=== PATIENT | female | born 1985 | race Caucasian/White ===

== ENCOUNTER 2018-11-16 08:00 | Inpatient (IN) ==
[2018-11-16] MEDS ORDERED: *HR* Nalbuphine 10 MG/ML AMPUL IVP PRN (08:11)
[2018-11-16] MEDS ORDERED: Penicillin G Potassium 5,000,000 UNIT in 0.9 % Sodium Chloride Mini Bag 100 ML IVPB ONE (08:11)
[2018-11-16] MEDS ORDERED: Metoclopramide 10 MG/2 ML VIAL IVP PRN (08:11)
[2018-11-16] MEDS ORDERED: Ondansetron 4 MG/2 ML VIAL IVP PRN (08:11)
[2018-11-16] MEDS ORDERED: Famotidine 20 MG/2 ML VIAL IVP PRN (08:11)
[2018-11-16] MEDS ORDERED: Oxytocin 20 units/ LR 1000 mL 20 UNIT/1,000 ML BAG IVC SCH ×2 (08:15→20:17)
[2018-11-16] MEDS ORDERED: Ringers Solution, Lactated 1,000 ML IVC SCH (08:15)
[2018-11-16 08:52] LABS: Basophils % 0.3 %; Eosinophils # 0.1 K/mcL (0.0-0.6); Eosinophils % 1.1 %; Hemoglobin 13.3 g/dL (11.5-15.4); Immature Granulocytes % 0.8 % (0-4); Lymphocytes # 1.2 K/mcL (0.6-4.6); Lymphocytes % 15.8 %; Mean Corpuscular HGB Conc 34.1 g/dL (31.6-35.5); Mean Corpuscular Hemoglobin 30.9 pg (28.0-33.3); Mean Corpuscular Volume 90.7 fL (83.0-100.0); Mean Platelet Volume 10.7 fL (9.4-12.4); Monocytes # 0.5 K/mcL (0.0-1.3); Monocytes % 6.2 %; Platelet Count 140 K/mcL (140-400); Red Cell Distribution Width 14.6 % (11.5-14.5); Segmented Neutrophils % 75.8 %
[2018-11-16 08:58] LABS: Amphetamine Screen,Urine Negative ng/mL (Cutoff=1000); Barbiturate Screen,Urine Negative ng/mL (Cutoff=200); Benzodiazepines Screen,Urine Negative ng/mL (Cutoff=200); Cannabinoid Screen,Urine Negative ng/mL (Cutoff = 50); Cocaine Screen,Urine Negative ng/mL (Cutoff= 300); Opiate Screen,Urine Negative ng/mL (Cutoff=300); Phencyclidine Screen,Urine Negative ng/mL (Cutoff=25)
[2018-11-16] MEDS ORDERED: *HR* FentaNYL (PF) 100 MCG/2 ML VIAL EP ONE (09:24)
[2018-11-16] MEDS ORDERED: Bupivacaine-MPF 0.25% 10 ML VIAL EP ONE (09:24)
--- NOTE | 2018-11-16 09:24 | Anesthesia Evaluation PreOp ---
Date of Encounter: 11/16/18 Time of Encounter: 09:22 - Past History Planned Operation: JUAN LUIS Cardiac History: Denies any Significant Hx Pulmonary History: Denies Any Significant HX GOVERNMENT INSTRUCTOR History: Denies Any Significant HX Other Medical History: Other (gestational DM--diet controlled) Anesthesia History: No Prior Anesthetic Complications (previous JUAN LUIS x 2--no issues; denies personal & family h/o GA) : Yes Alcohol Use: none Drug use: none Medications and Allergies Cetirizine HCl [Zyrtec] 10 mg PO DAILY 11/19/15 [History] Vit No.124/Iron/FA [ Vitamin Tablet] 1 each PO DAILY 11/19/15 [History] Docusate [Colace] 100 mg PO BID #60 capsule 11/20/15 [Rx] Ibuprofen [Motrin] 600 mg PO TID PRN #60 tablet 11/20/15 [Rx] Allergy/AdvReac Type Severity Reaction Status Date / Time No Known Allergies Allergy Verified 11/19/15 12:09 - Meds/Allergy Pre-op Review Medications Reviewed: Yes Allergies Reviewed: Yes Beta Blockers on Current Med List: No Anesthesia Results - Labs 11/16/18 08:29 Anesthesia Exam 125/79; HR 90 O2 Sat Height 1.75 m Weight 101.605 kg Pain Scale: 0 Pain Scale Used: Numeric (1 - 10) - HEENT Pupil (Motor): Pupils equal Mallampati: II Teeth: Normal Oral Opening: Greater than 3 - GOVERNMENT INSTRUCTOR LOC: Oriented GOVERNMENT INSTRUCTOR Motor: Normal RUE, Normal LUE, Normal RLE, Normal LLE, Normal Face GOVERNMENT INSTRUCTOR Sensory: Normal: RUE, LUE, RLE, LLE, Face - Cardiac Rhythm: Regular Murmur: None - Pulmonary Breath Sounds: bilateral Clear Respiratory Effort: Symmetrical Anesthesia Assess/Plan ASA Score: 2 Level of consciousness: Cooperative, Oriented, Tranquil Anesthetic Plan: Epidural Autologous Blood: No Monitoring Plan: Standard Monitors Recovery Plan: Other
[2018-11-16] MEDS ORDERED: Epidural Premix (fent/bupiv) 110 ML EP SCH (09:30)
[2018-11-16] MEDS ORDERED: Bupivacaine-MPF 0.25% 10 ML VIAL ONE (09:31)
[2018-11-16] MEDS ORDERED: *HR* FentaNYL (PF) 100 MCG/2 ML VIAL ONE (09:31)
--- NOTE | 2018-11-16 10:21 | OB/GYN History & Physical ---
Date of Encounter: 11/16/18 Time of Encounter: 10:00 Assessment and Plan (1) 39 weeks gestation of Current visit: Yes Status: Acute (2) Elective induction of labor planned Current visit: Yes Status: Acute Pitocin started for the patient on arrival. We will continue to titrate until adequate contractions are acheived. (3) Gestational diabetes mellitus (GDM) Current visit: Yes Status: Acute Qualifiers: Gestational diabetes mellitus control: diet-controlled Trimester: third trimester Qualified Code(s): O24.410 - Gestational diabetes mellitus in , diet controlled (4) History of herpes simplex type 2 infection Current visit: Yes Status: Acute Patient has been on suppressive therapy without any breakout or prodromal symptoms. (5) Positive GBS test Current visit: Yes Status: Acute PCN IV as ordered. History of Present Illness Chief complaint: induction of labor HPI: Ms. Bah is a 33 year old female G 3 P 2-0-0-2 at 39 3/7 weeks presents to labor and delivery for induction of labor at term. She is a GDM and manages it completely with her diet. She reports continued good glycemic control. She denies any contractions, vaginal bleeding, or leaking fliud. She reports good movement. This is her third . 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) Current living situation: Home - Independent - Family History Mother Hx Family Cardiac Disorders: No Hx Family Respiratory Disorders: No Hx Family Cancer: No Hx Family GI Disorders: No Hx Family Genitourinary Disorders: No Hx Family Endocrine Disorder: No Hx Family Musculoskeletal Disorders: No Hx Family Neuromuscular Disorders: No Hx Family Neurologic Disorders: No Hx Family HEENT Disorders: No Hx Family Autoimmune Disorders: No Hx Family Reproductive Disorders: No Hx Family Psychosocial Disorders: No Hx Family Medical Disorders: No Obstetrical History - Pregnancies : 3 Para: 2 Term: 2 : 0 Ab's: 0 Livin - History/Complications History/Complications: GDM A1 Medications and Allergies Cetirizine HCl [Zyrtec] 10 mg PO DAILY 11/19/15 [History] Vit No.124/Iron/FA [ Vitamin Tablet] 1 each PO DAILY 11/19/15 [History] Docusate [Colace] 100 mg PO BID #60 capsule 11/20/15 [Rx] Ibuprofen [Motrin] 600 mg PO TID PRN #60 tablet 11/20/15 [Rx] Acyclovir [Zovirax] 400 mg PO DAILY 11/16/18 [History] Allergy/AdvReac Type Severity Reaction Status Date / Time No Known Allergies Allergy Verified 11/19/15 12:09 Review of System OB All systems PM: reviewed and no additional remarkable complaints except as stated - Constitutional Constitutional ROS IM: no chills, no fatigue, no fever(s) - Cardiovascular Cardiovascular: no chest pain - Respiratory Respiratory: no dyspnea - Genitourinary Genitourinary: amenorrhea, no difficulty urinating, no difficulty voiding, no hematuria - Menstruation Menstruation: amenorrhea () Exam - Constitutional Constitutional: well developed, well nourished, no acute distress, average body habitus - HEENT HEENT: Normocephaly, Mucus Membranes Moist - Lungs Respiratory exam: accessory muscle use - Cardiovascular Cardiovascular exam: RRR - Abdomen Abdomen: Present: bowel sounds normal, gravid, non tender - Cervix Dilation: 2 Effacement: 50 Station: -3 - Comments Comments: FHTs category 1, contractions infrequent. Pitocin currently at 6 milliUnits/min Results Result Diagrams: 11/16/18 08:29 Abnormal lab results RDW 14.6 % (11.5-14.5) H 11/16/18 08:29 All other labs normal. US - abdomen: report reviewed, image reviewed (10/22/2018 EFW 3274 gm, cephalic, adequate fluid) - VTE Reasons for not Prescribing Prophylaxis: Treatment not Indicated - Low risk for VTE
[2018-11-16] MEDS ORDERED: Penicillin G Potassium 2,500,000 UNIT in 0.9 % Sodium Chloride 100 ML IVPB SCH (12:00)
--- NOTE | 2018-11-16 12:49 | Anesthesia Procedures ---
Date of Encounter: 11/16/18 Time of Encounter: 12:47 Procedures: Anesthesia - Epidural/Spinal Patient ID/Chart reviewed: Yes Patient examined: Yes OB Eval: Gestational age: 39 weeks 3 days OB Eval: : 3 OB Eval: Hx Para: 2 OB Eval: Contractions: Non-stressed pattern Consent Obtained: Yes Supplemental Oxygen: None/Room Air Site Prep: Aseptic Technique, Sterile prep and drape, Povidone-Iodine 1% Patient position: upright Local Anesthetic: Lidocaine 1% Amount of Local Anesthetic used: 5 Touhy Needle Gauge: 18 Touhy Needle Depth (cm): 5 Catheter Depth at Skin (cm): 10 Test Dose (1.5% Lido + Epi): Volume given (mls): 5 Test Dose Result: Negative Loading Dose: 0.25% Marcaine (mls): 5 Loading Dose: Fentanyl (mcg): 100 Loading Dose Administered: Thru Catheter Infusion Med: 0.125% Bupivacaine w/ 2 mcg/ml Fentanyl Infusion Rate (mls/hr): 15 (w/ demand bolus of 6mL q30min PRN) Catheter Secured in Place: Tegaderm, Tape Interspace Used: L4-L5 Loss of Resistance (SHU): Yes Blood: No CSF: No Paresthesia: No Procedure: successful on 1st attempt; patient tolerated procedure well; VSS Vitals + FHT's: see Shauna LARA's electronic records for VS entry
--- NOTE | 2018-11-16 13:06 | OB Labor Progress Note ---
Date of Encounter: 11/16/18 Time of Encounter: 13:03 Labor Progress Note - Subjective Subjective: Patient comfortable after her epidural - Vital Signs Vital Signs: 118/67 - Cervix Cervix: 3/75/-3 cephalic - Heart Tones Heart Tones: 120, category 1 - [place]: infrequent contractions, pitocin at 4 mulliunits/minute - Interventions Interventions: AROM with clear fluid. IUPC placed without difficulty - Plan Plan: Continue pitocin induction
--- NOTE | 2018-11-16 17:37 | OB/GYN Procedure Note ---
Delivery - Delivery Date: 11/16/18 Provider: Shaniqua Bowers Intrapartum events: none Delivery induction: AROM, oxytocin Delivery monitor: external FHT, external uterine, internal uterine Anesthesia: epidural Quantitated Blood Loss: 450 - Infant (s) A Infant Delivery Date: 11/16/18 Delivery Time: 17:23 Presentation: vertex Position: JAZZY Route of delivery: Gender: Female Viability: Viable Pounds: 8 Ounces: 3 Weight Gram: 3.72 kg (.) at 1 minute: 8 at 5 mins: 9 Shoulder Dystocia: not encountered Placenta: spontaneous Cord: 3 umbilical vessels - Repair Episiotomy: none Laceration Description: None - Complications Delivery complications: none Delivery comments: Called to room with patient complete and +2 station. Under maternal effort she delivered a viable female weighing 8 lbs. 3 oz. and Apgars 8 and 9 at one and 5 minutes respectively. Following delivery of the head there was no nuchal cord or shoulder dystocia encountered. The infant was delivered with maternal effort and placed on mom's abdomen. Cord was allowed to cease pulsations and was double clamped and cut with assistance from the father. Placenta delivered spontaneously, complete, and intact with a three-vessel cord. There were no vaginal, perineal, vulvar labial lacerations on exam. Mother and infant are recovering in the LDR in stable condition. - Disposition Mom disposition: stable in LDR [place] disposition: stable in LDR
[2018-11-16] MEDS ORDERED: Acetaminophen 325 MG TABLET PO PRN (20:17)
[2018-11-16] MEDS ORDERED: Ibuprofen 600 MG TABLET PO PRN (20:17)
[2018-11-17] MEDS ORDERED: Prenatal Vit/FA 1 EACH TABLET PO SCH (09:00)
[2018-11-17 09:05] VITALS: BP 115/70
--- NOTE | 2018-11-17 09:11 | Discharge Summary ---
Date of Encounter: 11/17/18 Time of Encounter: 09:09 - Discharge Diagnosis (1) Gestational diabetes mellitus (GDM) Priority: Secondary Status: Acute Comments: 2 hour gtt at visit Qualifiers: Gestational diabetes mellitus control: diet-controlled Trimester: third trimester Qualified Code(s): O24.410 - Gestational diabetes mellitus in , diet controlled (2) Vaginal delivery Priority: Primary Status: Acute Comments: Continue routine care discharge home today follow up with Dr. Bowers in 4-6 weeks - Discharge Medications Prescriptions: No Action Cetirizine HCl [Zyrtec] 10 mg PO DAILY Vit No.124/Iron/FA [ Vitamin Tablet] 1 each PO DAILY Ibuprofen [Motrin] 600 mg PO TID PRN #60 tablet PRN Reason: Cramping Docusate [Colace] 100 mg PO BID #60 capsule Acyclovir [Zovirax] 400 mg PO DAILY Home Medications: Cetirizine HCl [Zyrtec] 10 mg PO DAILY 11/19/15 [History] Vit No.124/Iron/FA [ Vitamin Tablet] 1 each PO DAILY 11/19/15 [History] Docusate [Colace] 100 mg PO BID #60 capsule 11/20/15 [Rx] Ibuprofen [Motrin] 600 mg PO TID PRN #60 tablet 11/20/15 [Rx] Acyclovir [Zovirax] 400 mg PO DAILY 11/16/18 [History] Allergies/Adverse Reactions: Allergy/AdvReac Type Severity Reaction Status Date / Time No Known Allergies Allergy Verified 11/19/15 12:09 Data Procedures and tests throughout hospitalization: Laboratory Tests 11/16/18 11/16/18 08:29 08:29 WBC 7.9 RBC 4.30 Hgb 13.3 Hct 39.0 MCV 90.7 MCH 30.9 MCHC 34.1 RDW 14.6 H Plt Count 140 MPV 10.7 Immature Gran % 0.8 Seg Neutrophils % 75.8 Lymphocytes % 15.8 Monocytes % 6.2 Eosinophils % 1.1 Basophils % 0.3 Neutrophils # 6.0 Lymphocytes # 1.2 Monocytes # 0.5 Eosinophils # 0.1 Basophils # 0.0 Urine Opiates Screen Negative Ur Barbiturates Screen Negative Ur Phencyclidine Scrn Negative Ur Amphetamines Screen Negative U Benzodiazepines Scrn Negative Urine Cocaine Screen Negative U Marijuana (THC) Screen Negative Ur Drug Screen Interp See Below Date of admission: 11/16/18 08:01 Primary care physician: PCP NONE Discharging clinician: Kath Malagon Anticipated date of discharge: 11/17/18 - Patient Status Disposition: Home, Self-Care Condition: Good Functional capacity at discharge: independent ambulation - Discharge Instructions Follow Up With: NONE,PCP [Primary Care Provider] - Shaniqua Bowers DO [Partnered Physician] - - Diet and Activity Activity: increase activity as tolerated Diet: regular diet Hospital Course Reason for admission: induction of labor Delivery: Episiotomy: none Laceration: none Other procedures: none complications: none Discharge diagnosis: IUP at term delivered [place] baby: female (bottle feeding) Time Attestation: Total time spent providing and/or coordinating discharge services: Time Spent: Less than 30 minutes Exam - Constitutional Vitals: Temp Pulse Resp BP Pulse Ox 98.1 F 75 14 115/70 98 11/17/18 07:35 11/17/18 07:35 11/17/18 07:35 11/17/18 07:35 11/17/18 07:35 General appearance IM: A&O X 3, pleasant, answers questions appropriately - Respiratory Respiratory exam: Present: CTAB - Cardiovascular Cardiovascular exam IM: Present: RRR, +S1, +S2 - GI/Abdominal GI/Abdominal exam IM: normal bowel sounds - Uterine Tone: Firm Uterus Position: At Umbilicus, Midline - Neurological Exam Neurological exam: alert, oriented X3, reflexes normal
== END 2018-11-17 18:47 | disposition home or self-care (01) | DRG 807 ==
LOC: 1NENULAB 08:01 → 1NENUOBS 20:20
PROVIDERS: ADMIT Obstetrics & Gynecology; ATTEND Obstetrics & Gynecology

== ENCOUNTER 2019-11-14 11:42 | Observation (INO) ==
[2019-11-14] MEDS: Ringers Solution, Lactated 1,000 ML IVC SCH ×4 (10:16→15:13)
[2019-11-14 10:30] LABS: Bilirubin,Urine Small (Negative); Blood,Urine Small (Negative); Clarity,Urine Cloudy (Clear); Glucose,Urine (UA) Normal (Normal); Ketones,Urine 15 mg/dL (Negative); Leukocyte Esterase,Urine Small (Negative); Nitrite,Urine Negative (Negative); Protein,Urine 30 mg/dL (Neg-Trace); Specific Gravity,Urine > 1.030 (1.010-1.025); Urobilinogen,Urine Normal (Normal)
[2019-11-14 10:33] LABS: Bacteria,Urine Few per hpf (None-Few); Color,Urine Yellow (Yellow); Hyaline Casts,Urine Few per lpf (None-Few); Squamous Epithelial Cell,Urine Many per lpf (None-Few)
[2019-11-14 10:40] LABS: Calcium Oxalate Crystals,Urine Present; RBC,Urine 0-3 per hpf (0-3)
[~2019-11-14 11:42] MED LIST: Morphine Sulfate 2 MG/ML SYRINGE IVP ONE; Ondansetron 4 MG/2 ML VIAL IVP PRN
[2019-11-14] MEDS ORDERED: cefTRIAXone 1,000 MG in Water for inj. (sterile) 10 ML IVP SCH (14:00)
[2019-11-14] MEDS ORDERED: Scopolamine Patch 1.5 MG PATCH.TD72 TD SCH (14:40)
[2019-11-14] MEDS ORDERED: Metoclopramide 10 MG/2 ML VIAL IVP PRN (14:40)
[2019-11-14] MEDS ORDERED: Famotidine 20 MG/2 ML VIAL IVP PRN (14:40)
[2019-11-14] MEDS ORDERED: Naloxone 0.4 MG/ML INJ IVP PRN (14:40)
[2019-11-14] MEDS ORDERED: Ondansetron 4 MG/2 ML VIAL IVP PRN (14:40)
[2019-11-14] MEDS ORDERED: Morphine Sulfate 2 MG/ML SYRINGE IVP PRN (15:04)
[2019-11-14] MEDS ORDERED: Acetaminophen 325 MG TABLET PO PRN (15:04)
[2019-11-14] MEDS: Acetaminophen 325 MG TABLET PO PRN (15:57)
[2019-11-14] MEDS: *HR* Promethazine 25 MG/ML VIAL IVP PRN (17:53)
[2019-11-15] MEDS: Ringers Solution, Lactated 1,000 ML IVC SCH ×2 (00:10→07:30)
[2019-11-15] MEDS: Acetaminophen 325 MG TABLET PO PRN (00:10)
[2019-11-15] MEDS: *HR* Promethazine 25 MG/ML VIAL IVP PRN (05:06)
[2019-11-15 07:41] VITALS: BP 99/54
[2019-11-15] MEDS ORDERED: cefTRIAXone 1,000 MG in Water for inj. (sterile) 10 ML IVP SCH (09:00)
== END 2019-11-15 12:40 | disposition home or self-care (01) ==
LOC: 1NENULAB → 1NENUOBS 14:37
PROVIDERS: ADMIT Student in an Organized Health Care Education/Training Program; ATTEND Student in an Organized Health Care Education/Training Program

== ENCOUNTER → 2019-11-16 12:42 | Observation (INO) ==
[2019-11-16 11:41] LABS: Bilirubin,Urine Negative (Negative); Blood,Urine Negative (Negative); Color,Urine Yellow (Yellow); Glucose,Urine (UA) Normal (Normal); Ketones,Urine >=160 mg/dL (Negative); Leukocyte Esterase,Urine Moderate (Negative); Nitrite,Urine Negative (Negative); PH,Urine 6.5 pH Units (5.0-8.0); Protein,Urine Negative (Neg-Trace); Specific Gravity,Urine 1.014 (1.010-1.025); Urobilinogen,Urine Normal (Normal)
[2019-11-16 11:57] LABS: Clarity,Urine Slightly Hazy (Clear)
[2019-11-16 11:59] LABS: RBC,Urine 0-3 per hpf (0-3); Squamous Epithelial Cell,Urine Few per lpf (None-Few)
[2019-11-16 12:00] LABS: Bacteria,Urine Few per hpf (None-Few)
[2019-11-16 12:03] LABS: Basophils % 0.2 %; Eosinophils % 0.3 %; Hematocrit 39.1 % (35.3-44.9); Hemoglobin 12.9 g/dL (11.5-15.4); Immature Granulocytes % 0.5 % (0-4); Lymphocytes # 0.8 K/mcL (0.6-4.6); Lymphocytes % 8.9 %; Mean Corpuscular Hemoglobin 30.9 pg (28.0-33.3); Mean Corpuscular Volume 93.8 fL (83.0-100.0); Mean Platelet Volume 10.5 fL (9.4-12.4); Monocytes # 0.8 K/mcL (0.0-1.3); Platelet Count 130 K/mcL (140-400); Red Blood Count 4.17 M/mcL (3.82-4.97); Red Cell Distribution Width 14.2 % (11.5-14.5); Segmented Neutrophils % 81.1 %; White Blood Count 9.2 K/mcL (4.3-11.1)
[2019-11-16 12:04] LABS: Neutrophils # 7.5 K/mcL (1.6-8.9)
== END | disposition home or self-care (01) ==
LOC: 1NENULAB
PROVIDERS: ADMIT Obstetrics & Gynecology; ATTEND Obstetrics & Gynecology